=== PATIENT | female | born 1950 | race Caucasian/White ===

== ENCOUNTER → 2016-08-21 | Outpatient (CLI) | payer BC ==
[~2016-08-21] MED LIST: ATOR40TA PO; CITA10TA4 PO; LEVO100T PO; METF500T4 PO; METO25TA9 PO
--- NOTE | 2016-08-21 10:41 | CARD ---
APPROVED REPORT EXAM: Two-dimensional and M-mode echocardiogram with Doppler and color Doppler. Other Information Quality : GoodHR: 67bpm Rhythm : NSR INDICATION Murmur 2D DIMENSIONS RVDd2.7 (2.9-3.5cm)Left Atrium(2D)3.5 (1.6-4.0cm) IVSd0.9 (0.7-1.1cm)Aortic Root(2D)2.4 (2.0-3.7cm) LVDd4.3 (3.9-5.9cm)LVOT Diameter2.3 (1.8-2.4cm) PWd1.0 (0.7-1.1cm)LVDs3.0 (2.5-4.0cm) FS (%) 29.6 %SV46.5 ml LVEF(%)56.9 (>50%) Aortic Valve AoV Peak Tobias.155.7cm/sAoV VTI36.7cm AO Peak GR.9.7mmHgLVOT Peak Tobias.132.1cm/s AO Mean GR.6mmHgAVA (VMAX)3.38cm2 Mitral Valve MV E Gsnewmra156.5cm/sMV E Peak Gr.8mmHg MV DECEL [id number] A Xjzzpgxh284.4cm/s MV E Mean Gr.3mmHgE/A Ratio0.9 MV A Jvobytkv54cy Pulmonary Valve PV Peak Gwerzwsl519.9cm/s Tricuspid Valve TR P. Dxusmqch625ow/sTR Peak Gr.36mmHg Pulmonary Vein S1 Muoffjca98.9cm/sD2 Wigjvvth04.4cm/s PVa zfhnxafd03jbwc LEFT VENTRICLE The left ventricle is normal size. There is normal left ventricular wall thickness. The left ventricu lar systolic function is normal. The Ejection Fraction is 55-60%. There is normal LV segmental wall m otion. Transmitral Doppler flow pattern is Grade I-abnormal relaxation pattern. RIGHT VENTRICLE The right ventricle is normal size. There is normal right ventricular wall thickness. The right ventr icular systolic function is normal. ATRIA The left atrium size is normal. The right atrium size is normal. The interatrial septum is intact wit h no evidence for an atrial septal defect or patent foramen ovale as noted on 2-D or Doppler imaging. AORTIC VALVE The aortic valve is mildly sclerotic. The aortic valve is trileaflet. Doppler and Color Flow revealed no significant aortic regurgitation. There is no significant aortic valvular stenosis. MITRAL VALVE Mitral annular calcification is mild. The mitral valve leaflets are thickened. There is no evidence o f mitral valve prolapse. There is no mitral valve stenosis. Doppler and Color Flow revealed mild mitr al regurgitation. TRICUSPID VALVE Doppler and Color Flow revealed trace tricuspid regurgitation. The pulmonary artery systolic pressure is estimated at 40 mmHg. There is mild pulmonary hypertension. PULMONIC VALVE Doppler and Color Flow revealed no pulmonic valvular regurgitation. There is no pulmonic valvular moose nosis. GREAT VESSELS The aortic root is normal in size. The pulmonary artery is normal. The IVC is normal in size and kimberly apses >50% with inspiration. PERICARDIAL EFFUSION There is no evidence of significant pericardial effusion. Critical Notification Critical Value: No <Conclusion> The left ventricular systolic function is normal. The Ejection Fraction is 55-60%. There is normal LV segmental wall motion. Mild mitral regurgitation. Trace tricuspid regurgitation. The pulmonary artery systolic pressure is estimated at 40 mmHg. There is mild pulmonary hypertension. There is no evidence of significant pericardial effusion.
== END | disposition home or self-care (01) ==
LOC: ECHO 08:36
PROVIDERS: ATTEND Internal Medicine Cardiovascular Disease
DX: I08.1 Rheumatic disorders of both mitral and tricuspid valves (principal); I27.2 Other secondary pulmonary hypertension
CPT/HCPCS: 93306

== ENCOUNTER → 2017-10-08 | Outpatient (CLI) | payer BC | END | disposition home or self-care (01) | LOC: MAMMO 10:16 | DX: Z12.31 Encounter for screening mammogram for malignant neoplasm of breast (principal); I10 Essential (primary) hypertension; E03.9 Hypothyroidism, unspecified; E78.00 Pure hypercholesterolemia, unspecified | CPT/HCPCS: 77063; 77067 ==

== ENCOUNTER → 2018-08-10 | Day surgery (SDC) | payer BC ==
[~2018-08-10] MED LIST changes: +GLIM4TAB2 PO; +IV RINGERS,LACTATED 1000ML 1,000 ML IV SCH; +LIDOCAINE 2% PF 5 ML VIAL. ONE; +METF500T16 PO; -METF500T4 PO; +METO-239 PO; -METO25TA9 PO; +PROPOFOL 20 ML IV ONE
[2018-08-10 08:20] VITALS: BP 149/76
--- NOTE | 2018-08-11 04:56 | HP ---
ADMIT DATE: 08/10/2018 UPDATED HISTORY AND PHYSICAL HISTORY OF PRESENT ILLNESS: This is a 67-year-old female with past medical history significant for anxiety, diabetes, hypertension, hypothyroidism, who is seen for screening colon, not had previous studies. Stools are formed. There is a positive family history of colon cancer with her sister recently diagnosed. No diarrhea or constipation. No bleeding. She is otherwise without additional complaints. PAST MEDICAL HISTORY: Diabetes, hypertension, hypothyroidism, and anxiety. ALLERGIES: None. MEDICATIONS: Include atorvastatin, citalopram, glimepiride, levothyroxine, metformin and metoprolol. FAMILY HISTORY: Significant for the colon cancer with her sister, diabetes in parents and sister. Hypertension in parents and brother. PAST SURGICAL HISTORY: Noncontributory. REVIEW OF SYSTEMS: As per records. PHYSICAL EXAMINATION: GENERAL: This is a well-nourished, well-developed female, who is alert, cooperative, in no acute distress. VITAL SIGNS: Temperature 97.3, pulse 75, respiratory rate 20. HEENT: Normocephalic, atraumatic head. Pupils and extraocular muscles are not tested. Sclerae anicteric. NECK: Supple. LUNGS: Clear. CARDIOVASCULAR: Reveals S1, S2 without S3, S4 or appreciable murmur. ABDOMEN: Reveals soft abdomen, normal bowel sounds without appreciable hepatosplenomegaly. EXTREMITIES: Reveals no cyanosis, clubbing or edema. IMPRESSION: Colorectal screening plus family history, is warranted at this time. Risks and benefits have been discussed with the patient including risk of hemorrhage and perforation. She is willing to proceed. GUSTAVO TORRES MD DR: ROOSEVELT/carolyne JOB#: [id number] / [id number]
--- NOTE | 2018-08-11 16:07 | PATHOLOGY ---
[facility] Accession Number: [id number] . 01 Material submitted: . rectum - RECTAL POLYP . 01 Clinical history: . Fam hx colon ca . 02 Diagnosis: Colorectal biopsy, rectal polyp: - Hyperplastic polyp, with few mucosal-associated lymphoid aggregates. (JPM:brit; 08/11/2018) QMS/08/11/2018 . 02 Comment: There are no adenomatous changes or evidence of malignancy. (JPM:brit 08/11/2018) . 02 Electronically signed: . Valentin Riddle MD, Pathologist NPI- [id number] . 01 Gross description: . The specimen is received in formalin, labeled "Joyce Montana, rectal polyp" and consists of a polypoid segment of pink-devries tissue measuring 0.7 x 0.6 x 0.3 cm. The margin is inked black. It is trisected and entirely submitted in A1. (SDY; 08/10/2018) SYU/SYU . 02 Pathologist provided ICD-10: K62.1 . 02 CPT . 183435 Specimen Comment: A courtesy copy of this report has been sent to Specimen Comment: [phone], . Specimen Comment: Report sent to / DR FORTUNE Performed at: 01 [facility] [address], [place], [place] [id number] MD Fabio Andrade MD Phone: [phone] Performed at: 02 [facility] [address], [place] [id number] MD Valentin Riddle MD Phone: [phone]
== END ==
LOC: ENDOS 07:03
PROVIDERS: ATTEND Internal Medicine Gastroenterology
DX: Z12.11 Encounter for screening for malignant neoplasm of colon (principal); K62.1 Rectal polyp; K64.0 First degree hemorrhoids; K57.30 Diverticulosis of large intestine without perforation or abscess without bleeding; I10 Essential (primary) hypertension; E11.9 Type 2 diabetes mellitus without complications; E03.9 Hypothyroidism, unspecified; F41.9 Anxiety disorder, unspecified; Z79.899 Other long term (current) drug therapy; Z98.890 Other specified postprocedural states; Z80.0 Family history of malignant neoplasm of digestive organs; Z79.84 Long term (current) use of oral hypoglycemic drugs
CPT/HCPCS: 45385; 88305; J2001; J2704; 45380

== ENCOUNTER → 2018-09-28 | Outpatient (CLI) | payer BC ==
[2018-08-10 08:20] VITALS: BP 149/76
[~2018-09-28] MED LIST changes: -IV RINGERS,LACTATED 1000ML 1,000 ML IV SCH; -LIDOCAINE 2% PF 5 ML VIAL. ONE; -PROPOFOL 20 ML IV ONE
--- NOTE | 2018-09-28 13:36 | CARD ---
MR#: [id number] Date of Study: 09/28/2018 Ordering Physician: AIDAN MAST, Referring Physician: AIDAN MAST, Tech: Leticia Leo APPROVED REPORT EXAM: Two-dimensional and M-mode echocardiogram with Doppler and color Doppler. Other Information Quality : AverageHR: 60bpm INDICATION Murmur RISK FACTORS Hypertension Hyperlipidemia Diabetes 2D DIMENSIONS RVDd2.2 (2.9-3.5cm)Left Atrium(2D)3.5 (1.6-4.0cm) IVSd1.0 (0.7-1.1cm)Aortic Root(2D)2.4 (2.0-3.7cm) LVDd5.1 (3.9-5.9cm)LVOT Diameter2.0 (1.8-2.4cm) PWd1.0 (0.7-1.1cm)LVDs3.3 (2.5-4.0cm) FS (%) 36.2 %SV82.6 ml Aortic Valve AoV Peak Tobias.156.1cm/sAoV VTI34.6cm AO Peak GR.9.8mmHgLVOT Peak Tobias.108.0cm/s LVOT VTI 25.62cmAO Mean GR.5mmHg LIV (VMAX)1.78fx7HKP (VTI)2.21cm2 Mitral Valve MV E Dpivrznh65.4cm/sMV DECEL MOHA340oy MV A Ojablyay188.4cm/sMV CNJ382gw E/A Ratio0.7MVA (PHT)2.11cm2 TDI E/Lateral E'15.7E/Medial E'14.2 Pulmonary Valve PV Peak Eibmvnec22.1cm/sPV Peak Grad.4mmHg Tricuspid Valve TR P. Mjytgwlr195fl/sRAP MKTASJWE5ubUh TR Peak Gr.47ilVzBNNU94oiGj Pulmonary Vein S1 Fnzysjfb45.1cm/sD2 Nfhnktns58.8cm/s PVa bwvyppmx050rrse LEFT VENTRICLE The left ventricle is normal size. There is borderline concentric left ventricular hypertrophy. The l eft ventricular systolic function is normal and the ejection fraction is within normal range. The Eje ction Fraction is 55-60%. There is normal LV segmental wall motion. Transmitral Doppler flow pattern is Grade I-abnormal relaxation pattern. RIGHT VENTRICLE The right ventricle is normal size. There is normal right ventricular wall thickness. The right ventr icular systolic function is normal. ATRIA The left atrium size is normal. The right atrium size is normal. The interatrial septum is intact wit h no evidence for an atrial septal defect or patent foramen ovale as noted on 2-D or Doppler imaging. AORTIC VALVE The aortic valve is not well visualized. Doppler and Color Flow revealed no significant aortic regurg itation. There is no significant aortic valvular stenosis. MITRAL VALVE Mitral annular calcification is moderate. There is no evidence of mitral valve prolapse. There is no mitral valve stenosis. Doppler and Color-flow revealed trace mitral regurgitation. TRICUSPID VALVE The tricuspid valve is normal in structure and function. Doppler and Color Flow revealed trace to mil d tricuspid regurgitation with an estimated PAP of 36 mmHg. There is no tricuspid valve stenosis. PULMONIC VALVE The pulmonic valve is not well visualized. Doppler and Color Flow revealed trace pulmonic valvular re gurgitation. GREAT VESSELS The aortic root is normal in size. The IVC is normal in size and collapses <50% with inspiration. PERICARDIAL EFFUSION There is no evidence of significant pericardial effusion. Critical Notification Critical Value: No <Conclusion> The left ventricle is normal size. The left ventricular systolic function is normal and the ejection fraction is within normal range. The Ejection Fraction is 55-60%. There is borderline concentric left ventricular hypertrophy. There is no significant aortic valvular stenosis. Doppler and Color Flow revealed no significant aortic regurgitation. Doppler and Color-flow revealed trace mitral regurgitation. Doppler and Color Flow revealed trace to mild tricuspid regurgitation with an estimated PAP of 36 mmH g. Signed by : Aidan Mast MD Electronically Approved : 09/28/2018 13:36:43
== END | disposition home or self-care (01) ==
LOC: ECHO 11:46
PROVIDERS: ATTEND Internal Medicine Cardiovascular Disease
DX: I08.1 Rheumatic disorders of both mitral and tricuspid valves (principal); I11.9 Hypertensive heart disease without heart failure; E11.9 Type 2 diabetes mellitus without complications; E78.5 Hyperlipidemia, unspecified
CPT/HCPCS: 93306

== ENCOUNTER → 2018-10-17 | Outpatient (CLI) | payer BC ==
[2018-08-10 08:20] VITALS: BP 149/76
--- NOTE | 2018-10-18 10:08 | RAD ---
DATE: 10/17/2018 10:00 AM EXAM: MAMMO MACKENZIE SCREENING BILATERAL HISTORY: routine screening evaluation. COMPARISON: Prior mammographic imaging 10/08/2017, 10/28/2012 Bilateral CC and MLO views of the breasts were performed. Bilateral breast tomosynthesis was performed in CC and MLO projections. This study was interpreted with the benefit of Computerized Aided Detection (CAD). FINDINGS: Breast Density: HETERO The breast parenchyma Is heterogeneously dense, which could reduce sensitivity of mammography. Breast parenchyma level C Benign calcifications are present. A focal asymmetry is seen within the slightly superior left breast at about the 12:00 position, new compared to prior examination, approximately 6.5 cm from the nipple. No suspicious left breast microcalcification No suspicious masses, microcalcifications or architectural distortion is present to suggest malignancy in the right breast. The visualized axillae are unremarkable. IMPRESSION: Left breast focal asymmetry, findings for additional imaging is advised. BI-RADS CATEGORY: 0 INCOMPLETE: NEEDS ADDITIONAL IMAGING EVALUATION AND/OR PRIOR MAMMOGRAMS FOR COMPARISON. RECOMMENDED FOLLOW-UP: ADD ADDITIONAL IMAGING additional imaging of the left breast to include spot compression images and ultrasound is recommended. PQRS compliance statement: Patient information was entered into a reminder system with a target due date for the next mammogram. Mammography is a sensitive method for finding small breast cancers, but it does not detect them all and is not a substitute for careful clinical examination. A negative mammogram does not negate a clinically suspicious finding and should not result in delay in biopsying a clinically suspicious abnormality. "Our facility is accredited by the [employer] Mammography Program."
== END | disposition home or self-care (01) ==
LOC: MAMMO 09:55
PROVIDERS: ATTEND Family Medicine
DX: Z12.31 Encounter for screening mammogram for malignant neoplasm of breast (principal); N64.89 Other specified disorders of breast
CPT/HCPCS: 77063; 77067

== ENCOUNTER → 2018-11-08 | Outpatient (CLI) | payer BC ==
[2018-08-10 08:20] VITALS: BP 149/76
--- NOTE | 2018-11-08 12:54 | RAD ---
DATE: 11/08/2018 EXAM: DIGITAL DIAGNOSTIC LT, BREAST LEFT HISTORY: Focal asymmetry in the left breast COMPARISON: Bilateral mammogram 10/17/2018 This study was interpreted with the benefit of Computerized Aided Detection (CAD). Targeted sonographic evaluation of the left breast was performed. Breast Density: SCATTERED The breast parenchyma shows scattered fibroglandular densities. Breast parenchyma level B. FINDINGS: Spot compression CC and MLO views of the left breast were obtained. No residual focal asymmetry is identified. Targeted sonographic evaluation of the left breast at the 12:00 position, 6.5 cm from the nipple was performed. No suspicious cystic or solid abnormalities identified. IMPRESSION: Negative left mammogram. Negative targeted left breast ultrasound. Please note that a negative ultrasound and mammogram does not preclude additional imaging if symptoms warrant. BI-RADS CATEGORY: 1 NEGATIVE RECOMMENDED FOLLOW-UP: 12M 12 MONTH FOLLOW-UP PQRS compliance statement: Patient information was entered into a reminder system with a target due date 10/18/2019 for the next mammogram. Mammography is a sensitive method for finding small breast cancers, but it does not detect them all and is not a substitute for careful clinical examination. A negative mammogram does not negate a clinically suspicious finding and should not result in delay in biopsying a clinically suspicious abnormality. "Our facility is accredited by the [employer] Mammography Program."
== END | disposition home or self-care (01) ==
LOC: MAMMO 10:05
PROVIDERS: ATTEND Family Medicine
DX: R92.8 Other abnormal and inconclusive findings on diagnostic imaging of breast (principal)
CPT/HCPCS: 76641; 77065

== ENCOUNTER → 2020-01-11 | Outpatient (CLI) | payer BC ==
[2018-08-10 08:20] VITALS: BP 149/76
[~2020-01-11] MED LIST changes: -GLIM4TAB2 PO; +GLIM4TAB8 PO; +LEVO-101 PO; -LEVO100T PO
--- NOTE | 2020-01-11 09:55 | RAD ---
EXAM: Bilateral digital screening mammogram with tomosynthesis. HISTORY: 69-year-old female presents for screening mammography. TECHNIQUE: Full-field digital craniocaudal and mediolateral oblique 2D and 3D tomosynthesis images of both breasts are obtained for evaluation. Computer aided detection was not applied. COMPARISON: 11/08/2018 and 10/17/2018 BREAST PARENCHYMAL DENSITY: Level B - Scattered fibroglandular densities. FINDINGS: There is no new suspicious mass, microcalcification or region of architectural distortion. There are stable areas of nodularity and asymmetry within both breasts. There are multiple benign calcifications. IMPRESSION: BI-RADS Category 2: Benign finding(s). RECOMMENDATION: Annual mammography is recommended. If your mammogram demonstrates that you have dense breast tissue, which could hide abnormalities, and if you have other risk factors for breast cancer that have been identified, you might benefit from supplemental screening tests that may be suggested by your ordering physician. Dense breast tissue, in and of itself, is a relatively common condition. This information is not provided to cause undue concern, but rather to raise your awareness and to promote discussion with your physician regarding the presence of other risk factors, in addition to dense breast tissue. A report of your mammography results will be sent to you and your physician. You should contact your physician if you have any questions or concerns regarding this report. Mammography is a sensitive method for finding small breast cancers, but it does not detect them all and is not a substitute for careful clinical examination. A negative mammogram does not negate a clinically suspicious finding and should not result in delay in biopsying a clinically suspicious abnormality. PQRS compliance statement - Patient information was entered into a reminder system with a target due date for the next mammogram. "Our facility is accredited by the [employer] Mammography [employer]." Electronically signed by: Gogo Hall MD (01/11/2020 9:52 AM) [id number]
== END ==
LOC: MAMMO 09:09
PROVIDERS: ATTEND Family Medicine
DX: Z12.31 Encounter for screening mammogram for malignant neoplasm of breast (principal); N64.89 Other specified disorders of breast
CPT/HCPCS: 77063; 77067